=== PATIENT | male | born 1990 | race Caucasian/White ===

== ENCOUNTER 2024-05-12 16:42 | Emergency (ER) | payer OTHER, SELFPAY ==
[2024-05-12 16:45] VITALS: BP 160/102
[2024-05-12 17:01] LABS: % Basophils 0.3 % (0-2); % Eosinophils 0.9 % (0-6); % Immature Granulocytes 0.3 % (0-0.5); % Lymphocytes 8.4 % (20.5-51.1); % Monocytes 4.6 % (1.7-9.3); % Neutrophils 85.5 % (42.2-75.2); Absolute Eosinophils 0.1 10^3/uL (0-0.7); Absolute Monocytes 0.5 10^3/uL (0.1-0.6); Hematocrit 49.2 % (39.0-52.0); Hemoglobin 17.3 g/dL (13.0-18.0); Mean Corp Hgb Conc. 35.2 g/dL (33.0-37.0); Mean Corpuscular Hgb 29.2 pg (27.0-31.0); Mean Platelet Volume 10.5 fL (7.4-10.4); Nucleated Red Blood Cells % 0 % (-); Platelet Count 196 10^3/uL (130-400); Red Blood Cell Count 5.93 10^6/uL (4.70-6.10); Red Cell Dist. Width 12.5 % (11.5-14.5); White Blood Cell Count 11.7 10^3/uL (4.8-10.8)
[2024-05-12 17:30] LABS: Blood Urea Nitrogen 13 mg/dl (9-20); Calcium 9.5 mg/dl (8.4-10.2); Carbon Dioxide 21 mmol/L (22-30); Chloride 109 mmol/L (98-107); Glucose 106 mg/dl (70-99); Lipase 442 U/L (23-300); Sodium 139 mmol/L (135-145); eGFR > 60.00
--- NOTE | 2024-05-12 19:33 | ED.GENMED ---
History of Present Illness
General
Chief Complaint: Abdominal Pain
Source: patient
Exam Limitations: none
Time Seen by Provider: 05/12/24 19:27
History of Present Illness
History of Present Illness:
See MDM
Past History
Past History
ED Past Medical History: None
ED Past Surgical History: None
Social History
Tobacco: Non-smoker
Alcohol: None
Personal: Single
Phy Exam
Physical Exam
Physical Exam:
See MDM
Course
Orders/Labs/Results
Orders:
Orders
05/12/24 16:52
Basic Metabolic Panel Urgent
Complete Blood Count/With Diff Urgent
Lipase Urgent
05/12/24 19:29
Urinalysis Reflex To Culture Urgent
Date Specimen was Collected: 05/12/24
Time Specimen was Collected: 16:48
Urine Microscopic Reflex Cult Urgent
05/12/24 19:33
CT Abd/pelvis W Iv Cont Urgent
Comment:
Reason For Exam: lower abd pain
05/12/24 20:54
Ketorolac [Toradol] 30 mg IV NOW STA
Abnormal Lab Results
05/12/24 05/12/24
16:52 19:29
WBC 11.7 H 10^3/uL
(4.8-10.8)
MPV 10.5 H fL
(7.4-10.4)
Absolute Neuts (auto) 10.0 H 10^3/uL
(1.4-6.5)
Absolute Lymphs (auto) 1.0 L 10^3/uL
(1.2-3.4)
Neutrophils % 85.5 H %
(42.2-75.2)
Lymphocytes % 8.4 L %
(20.5-51.1)
Chloride 109 H mmol/L
(98-107)
Carbon Dioxide 21 L mmol/L
(22-30)
Glucose 106 H mg/dl
(70-99)
Lipase 442 H U/L
(23-300)
Urine Ketones 3+ A
(Negative)
Urine Bacteria (Reflex) Few A
(Negative)
Urine Albumin (Reflex) 1+ A
(Neg - Trace)
05/12/24 16:52
05/12/24 16:52
Vital Signs
Initial and Last Documented VS:
Initial Vital Signs
Temp Pulse BP Pulse Ox
97.6 F 115 160/102 98
05/12/24 16:45 05/12/24 16:45 05/12/24 16:45 05/12/24 16:45
Last Documented Vital Signs
Temp Pulse Resp BP Pulse Ox
97.6 F 98 16 155/98 98
05/12/24 16:45 05/12/24 19:41 05/12/24 20:00 05/12/24 19:41 05/12/24 19:41
MDM/Problems Addressed
Differential Diagnosis Includes:
HPI and MDM Narrative:
34-year-old male presenting with lower abdominal pain. This has been ongoing for the past few days. He feels like he is constipated but he has diarrhea. His daughter had similar issues which improved with an enema. He tried an enema which is not
helping. Patient feels a lump in his lower abdomen. He has a sensation to defecate but nothing comes out. He is mildly nauseous.
Blood work was done prior to my evaluation. Patient is mild leukocytosis and has mild elevation of lipase. He denies alcohol use and has no upper abdominal pain. We discussed this could be viral. Given his ongoing symptoms, will obtain CT
Physical exam
General: Well appearing and non-toxic
HEENT: protecting airway
Neck: appears supple
CV: No evidence of cyanosis
Resp: No accessory muscle use
Abd: Non-distended. Mild suprapubic tenderness. No rebound. No epigastric tenderness
Extremities: No deformities
Neuro: alert
Psych: Normal affect
Skin: Intact
Problems Addressed including Acute and Chronic Conditions affecting care:
1. Abdominal pain and diarrhea
Acuity: acute
Prognosis: stable
Details: Given ongoing symptoms, will obtain CT
Updates
CT negative for acute pathology. Discussed return precautions
Differential Diagnosis (but not limited to): Viral syndrome, constipation, colitis
Testing considered: Abdominal ultrasound
Drug therapy (if applicable): OTC meds, please see d/c instruction regarding Rx drugs
Amount and/or Complexity of Data Reviewed
Clinical info obtained from: Patient
External data reviewed: N/A
Labs I independently reviewed (but not limited to): Leukocytosis, elevated lipase
Radiology: The CT scan was personally and independently reviewed. In addition, official CT report reviewed.
Pulse Ox: not hypoxic
EKG independently reviewed: N/A
Job Printer: N/A
Critical Care: N/A
Risk of Complication:
Social Determinants of health: Good social support
Discussed with other providers: N/A
Escalation of Care includes Admit/Obs: After being observed in the Emergency Department, pt stable for discharge.
Occasional wrong word or 'sound a like' substitutions may have occurred due to the inherent limitations of voice recognition software. Read the chart carefully and recognize, using context, where substitutions have occurred.
*Critical Care Note
Total Time (30-74mins, 75-104mins- exclusive of procedures): Not Applicable
ED Attending Note
-
Portions of this chart may have been created with voice recognition software.� Occasional wrong word or��sound alike� substitutions may have occurred due to the inherent limitations of voice recognition software.
Discharge Plan
Departure
Patient Disposition: Home (Routine Discharge)
Date of Disposition: 05/12/24
Time of Disposition: 22:25
Patient with high blood pressure during this ER visit?: Yes
Discharge Problem:
Abdominal pain
Instructions: Abdominal Pain
Prescriptions:
No Action
ondansetron HCl 4 MG tablet
4 mg PO Q8HPRN PRN (Reason: nausea) Qty: 6 0RF
Referrals:
NONE,* [Family Provider] -
Activity Restrictions/Additional Instructions:
Please return for any worsening symptoms.
You may return at any time if you have further concerns.
Please follow up with your doctor at the first available appointment, preferably this week.
Thank you for choosing [facility].
Interventions
Interventions:
*Risk Screen - Suicide Last Done: 05/12/24 16:45
*General Assessment Last Done: 05/12/24 16:45
*Neglect/Abuse Screening Last Done: 05/12/24 16:45
*ED COVID-19 Vaccine History Last Done: 05/12/24 16:45
PW-Kncekj-Ubsokhswkb Assessment Last Done: 05/12/24 19:41
Discharge Date and Time
Print Language: PORTUGUESE
[2024-05-12 19:35] LABS: Urine Albumin 1+ (Neg - Trace); Urine Bilirubin Negative (Negative); Urine Character Clear (Clear); Urine Color Yellow; Urine Glucose Negative (Negative); Urine Ketone 3+ (Negative); Urine Leukocyte Negative (Negative); Urine Nitrite Negative (Negative); Urine Occult Blood Negative (Negative); Urine Specific Gravity 1.015 (<1.030); Urine Urobilinogen Negative (Neg - 1+)
[2024-05-12 19:41] VITALS: BP 155/98
[2024-05-12 19:41] LABS: Urine Bacteria Few (Negative); Urine Red Blood Cell 0-2 /HPF (0-2); Urine Squamous Cell 0-2 /LPF (Few); Urine White Cell 0-2 /HPF (0-5)
[2024-05-12 19:42] LABS: Urine Mucus Moderate
[2024-05-12 20:03] VITALS: BMI 29.1
[2024-05-12] MEDS: TORADOL 30 MG IV (21:01)
[2024-05-12 22:39] VITALS: BP 126/79
== END 2024-05-12 22:41 | disposition home or self-care (01) ==
LOC: EMR 16:42
PROVIDERS: Emergency Medicine; EMERGENCY PHYSICIAN Student in an Organized Health Care Education/Training Program
DX: R10.9 Unspecified abdominal pain (principal)
CPT/HCPCS: 99284; 96374; 74177; 80048; 81003; 81015; 83690; 85025; Q9967